=== PATIENT | female | born 1965 | race Caucasian/White ===

== ENCOUNTER 2016-07-08 01:42 | Emergency (ER) | payer OTHER ==
[2016-07-08 01:54] VITALS: PULSE 79; RESP 16; TEMP 97.9; O2SAT 97
--- NOTE | 2016-07-08 03:34 | C.PDOC ---
History Of Present Illness 53 y/o female presents to the ER c/o right foot pain that began 2 days ago. Pt notes the pain radiates from the hip to the right foot. Pt reports pain is worse with walking and had no relief with OTC medications. Pt denies numbness, weakness, injury or fall, fever, chills, bladder incontinence, chest pain, palpitation, or sob.no leg swelling. no recent surgery or prolonged immobilization. Time Seen by Provider: 07/08/16 02:19 Chief Complaint (Nursing): Lower Extremity Problem/Injury History Per: Patient History/Exam Limitations: no limitations Onset/Duration Of Symptoms: Days Current Symptoms Are (Timing): Still Present Severity: Mild Recent travel outside of the [place]: No Additional History Per: Patient Past Medical History Reviewed: Historical Data, Nursing Documentation, Vital Signs Vital Signs: Last Vital Signs Temp 97.9 F 07/08/16 01:45 Pulse 79 07/08/16 01:45 Resp 16 07/08/16 01:45 BP 150/85 07/08/16 03:43 Pulse Ox 97 07/08/16 08:08 - Medical History PMH: HTN Surgical History: Cholecystectomy (s/p cholelithiasis) Family History: States: Unknown Family Hx - Social History Hx Tobacco Use: No Hx Alcohol Use: Yes Hx Substance Use: No Review Of Systems Except As Marked, All Systems Reviewed And Found Negative. Constitutional: Negative for: Fever, Chills, Other (Injury or fall) Cardiovascular: Negative for: Chest Pain, Palpitations Respiratory: Negative for: Shortness of Breath, Pleuritic Pain Gastrointestinal: Negative for: Vomiting, Abdominal Pain Genitourinary: Negative for: Incontinence Musculoskeletal: Positive for: Foot Pain (Right foot pain. Pain radiation from hips to feet.). Negative for: Back Pain Neurological: Negative for: Weakness, Numbness Physical Exam - Physical Exam Appears: Non-toxic, No Acute Distress Skin: Warm, Dry Head: Atraumatic, Normacephalic Eye(s): bilateral: Normal Inspection Neck: No Midline Cervical Tenderness, No Paracervical Tenderness, Step Off Deformity, Supple Chest: Symmetrical, No Tenderness Cardiovascular: Rhythm Regular, No Murmur Respiratory: Normal Breath Sounds, No Rales, No Rhonchi, No Wheezing Gastrointestinal/Abdominal: Soft, No Tenderness, No Guarding, No Rebound Back: No Vertebral Tenderness, No Paraspinal Tenderness, Straight Leg Raising ( Negative for straight leg raises) Extremity: Normal ROM (Hips and leg), Tenderness (Tenderness to the right hip/ sciatic notch area, from at right hip, neg straight leg raise test. no erythema , edema or warmth), No Pedal Edema, No Calf Tenderness, Capillary Refill (<2secs ) Extremity: Bilateral: Normal ROM, Painful To Bear Weight Pulses: Left Dorsalis Pedis: Normal, Right Dorsalis Pedis: Normal Neurological/Psych: Oriented x3, Normal Speech, Normal Cognition, Normal Motor, Normal Sensation, Other (No focal deficit) Gait: Other (Abulates with limp) ED Course And Treatment O2 Sat by Pulse Oximetry: 97 (RA) Pulse Ox Interpretation: Normal Medical Decision Making Medical Decision Making: Impression: 51 y/o female c/o right foot pain for 2 days Plans: -Toradol After toradol pt feels better and has improvements on ambulation. pt reports decreased pain after toradol. will d/c home with tye and anat, with pmd f/u/ Pt instructed to follow up with PMD within 1-2 days if symptoms persist. Disposition Counseled Patient/Family Regarding: Diagnosis, Need For Followup, Rx Given - Disposition Referrals: [facility] [Outside] [facility] [Outside] Disposition: HOME/ ROUTINE Disposition Time: 03:32 Condition: IMPROVED Additional Instructions: [place] Naproxen cada 12 horas con los alimentos. [place] relajante muscular cada 8 horas; Rhiannon no lo tome si est trabajando o est operando maquinaria- entonces s lo tome a la hora de acostarse. Seguimiento en la clnica en los prximos 102 d as. Vuelva al ER para cualquier dolor que empeora. Prescriptions: Cyclobenzaprine [Cyclobenzaprine HCl] 10 mg PO Q8 #9 tab Naproxen 500 mg PO BID #20 tablet. Instructions: Sciatica (ED) Forms: Gen Discharge Inst Yoruba, Work Excuse Print Language: YI - Clinical Impression Clinical Impression: Sciatica - Scribe Statement The provider has reviewed the documentation as recorded by the Scribe Gary yu All medical record entries made by the Scribe were at my direction and personally dictated by me. I have reviewed the chart and agree that the record accurately reflects my personal performance of the history, physical exam, medical decision making, and the department course for this patient. I have also personally directed, reviewed, and agree with the discharge instructions and disposition.
[2016-07-08 03:43] VITALS: BP 150/85
== END 2016-07-08 03:43 | disposition home or self-care (01) ==
LOC: C.ER 01:42
DX: M54.30 Sciatica, unspecified side (principal)
CPT/HCPCS: 96372; 99283; J1885